=== PATIENT | female | born 1960 | race Caucasian/White ===

== ENCOUNTER → 2016-10-10 | Outpatient (CLI) | payer OTHER | LOC: LAB.O 14:36 | PROVIDERS: ATTEND Nurse Practitioner Family | DX: L40.50 Arthropathic psoriasis, unspecified (principal); Z79.899 Other long term (current) drug therapy ==

== ENCOUNTER → 2017-03-05 | Outpatient (CLI) | payer OTHER | LOC: LAB.O 12:28 | PROVIDERS: ATTEND Nurse Practitioner Family | DX: L40.50 Arthropathic psoriasis, unspecified (principal); Z79.899 Other long term (current) drug therapy ==

== ENCOUNTER → 2018-01-08 | Outpatient (CLI) | payer OTHER | LOC: YCFC.O 07:56 | PROVIDERS: ATTEND Nurse Practitioner Family | DX: L40.50 Arthropathic psoriasis, unspecified (principal); Z79.899 Other long term (current) drug therapy; Z13.220 Encounter for screening for lipoid disorders ==

== ENCOUNTER → 2020-06-26 | Outpatient (CLI) | payer BC ==
--- NOTE | 2020-06-26 17:02 | RAD ---
EXAM DESCRIPTION: Chest,2 Views CLINICAL HISTORY: 59 years Female, COUGH COMPARISON: None Available TECHNIQUE: PA/lateral FINDINGS: Focal infiltrate is observed in the right lower lobe consistent with pneumonia. The left chest clear. The heart is within range of normal. IMPRESSION: Right lower lobe pneumonia. Electronically signed by: Michael Mendoza MD 06/26/2020 5:00 PM CDT
== END ==
LOC: YCFC.O 16:26
PROVIDERS: ATTEND Nurse Practitioner Family
DX: J18.1 Lobar pneumonia, unspecified organism (principal)

== ENCOUNTER → 2020-07-31 | Outpatient (CLI) | payer BC ==
--- NOTE | 2020-08-02 15:49 | MAM ---
EXAM DESCRIPTION: 3D Screening BILATERAL : Digital Mammography. CLINICAL HISTORY: 59 years Female screening . No complaints. No family history breast cancer. Menarche age 11. Childbirth age 14. Menopause age 25. No HRT. Benign left breast biopsy. Lifetime risk of developing breast cancer (Tyrer-Cuzick model)(%): 6.7. COMPARISON: Bilateral screening digital breast 2-D imaging October 2015. No prior reports available. TECHNIQUE: Bilateral CC and MLO projection full-field images, digital tomosynthesis mammographic technique. Bilateral digital 2-D full-field MLO images. CAD available for 2-D images. FINDINGS: The breast parenchymal density pattern is: Scattered areas of fibroglandular density. No skin thickening or nipple retraction. Axillary nodes intramammary nodes stable. Solitary microcalcifications. No new focal, stellate mass or density, focal asymmetry , and no suspicious microcalcifications bilaterally. Stable mammograms compared to prior study. Taking into account, differences in mammographic technique. IMPRESSION: Benign exam. BIRAD CATEGORY: 2 BENIGN FINDINGS. RECOMMENDATIONS: FOLLOW UP: Routine digital bilateral mammographic screening, one year interval from July 2020. Written communication explaining the IMPRESSION and follow-up, will be mailed to the patient and referring health care provider. According to the [employer], yearly mammograms are recommended starting at age 40 and continuing as long as a woman is in good health. Any breast change noted on a breast self-exam should be reported promptly to the patient's healthcare provider. Breast MRI is recommended for women with an approximately 20-25% or greater lifetime risk of breast cancer, including women with a strong family history of breast or ovarian cancer and women who have been treated for Hodgkin's disease. A negative mammographic report should not delay tissue diagnosis in patients with significant clinical history or physical findings. Extremely dense breast tissue limits the sensitivity of digital mammography. Electronically signed by: Alek Neumann MD 08/02/2020 3:48 PM [facility]
== END ==
LOC: MAMMO 15:00
PROVIDERS: ATTEND Family Medicine
DX: Z12.31 Encounter for screening mammogram for malignant neoplasm of breast (principal)

== ENCOUNTER → 2020-11-08 | Outpatient (CLI) | payer BC | LOC: YCFC.O 09:04 | PROVIDERS: ATTEND Family Medicine | DX: M54.5 Low back pain (principal) ==

== ENCOUNTER 2020-11-10 14:31 | Emergency (ER) | payer BC ==
[2020-11-10] MEDS ORDERED: BUPIVACAINE 0.5% 30 ML VIAL INJ ONE (14:56)
[2020-11-10] MEDS ORDERED: TRIAMCINOLONE ACETONIDE INJ 40 MG/ML VIAL ONE (14:56)
--- NOTE | 2020-11-10 15:42 | RAD ---
EXAM DESCRIPTION: Lumbar Spine 3 Views CLINICAL HISTORY: pain to left of l5 COMPARISON: None. TECHNIQUE: AP and lateral FINDINGS: Mild convexity of the thoracolumbar spine to the right is observed. Surgical clips are seen in the right upper quadrant. The vertebral bodies are in good AP alignment. Marked loss of disc height is observed at the L3-4 level. Mild loss of disc height is also observed at the L2-3 and L1-2 levels. No spondylolysis or spondylolisthesis is seen. Degenerative changes are observed at the L5-S1 level as well with loss of disc height. IMPRESSION: Diffuse degenerative changes are observed. There is a right thoracolumbar scoliosis. Electronically signed by: Michael Mendoza MD 11/10/2020 3:40 PM [facility]
--- NOTE | 2020-11-10 16:38 | ED.PDOC ---
History of Present Illness - General Chief Complaint: General Stated Complaint: L hip, low back pain (non trauma) Time Seen by Provider: 11/10/20 14:46 Source: patient Exam Limitations: no limitations - History of Present Illness Initial Comments: The patient is a 60-year-old female presented emergency room secondary to pain in her left low back and buttock area. She pinpoints the area just to the left of the spine at approximately L5-S1 that is a trigger point for her pain. 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 She had a CT scan of the abdomen pelvis yesterday which was reassuring but no blood work. She denies fevers. Patient was started about 4 or 5 days ago. No inciting injury. No trauma. Timing/Duration: other - 4 days Severity: moderate Improving Factors: nothing Worsening Factors: nothing Associated Symptoms: denies symptoms Allergies/Adverse Reactions: Allergies Doxycycline Allergy (Verified 11/10/20 15:14) vycril sutures Allergy (Uncoded 11/10/20 15:14) Home Medications: Ambulatory Orders Adalimumab [Humira Pen] 40 mg SC 01/08/15 Lisinopril 20 mg PO DAILY 01/08/15 Ondansetron Odt [Zofran ODT] 8 mg PO Q6HR PRN #20 tab 01/08/15 predniSONE 40 mg PO DAILY #4 tab 01/08/15 Review of Systems - Review of Systems Constitutional: States: no symptoms reported EENTM: States: no symptoms reported Respiratory: States: no symptoms reported Cardiology: States: no symptoms reported Gastrointestinal/Abdominal: States: no symptoms reported Genitourinary: States: no symptoms reported Musculoskeletal: States: back pain Skin: States: no symptoms reported Neurological: States: no symptoms reported Endocrine: States: no symptoms reported All other Systems: No Change from Baseline Past Medical History (General) - Patient Medical History Hx Seizures: No Hx Stroke: No Hx Asthma: No Hx of COPD: No Hx Cardiac Disorders: No Hx Congestive Heart Failure: No Hx Pacemaker: No Hx Hypertension: Yes Hx Thyroid Disease: No Hx Diabetes: No Hx Cancer: No Surgical History: cholecystectomy, Hysterectomy - Vaccination History Hx Tetanus, Diphtheria Vaccination: Yes Hx Influenza Vaccination: Yes Hx Pneumococcal Vaccination: No - Social History Hx Tobacco Use: Yes Hx Alcohol Use: Yes Hx Substance Use: No Hx Substance Use Treatment: No Hx Depression: No - Female History Patient is a Female of Child Bearing Age (10 -59 yrs old): No Patient : No Family Medical History - Family History Mother Family History: Unknown Living Status: Physical Exam - Physical Exam General Appearance: Alert, Comfortable, No apparent distress Eye Exam: bilateral normal Ears, Nose, Throat: hearing grossly normal Respiratory: no respiratory distress, no accessory muscle use Cardiovascular/Chest: normal peripheral pulses, no edema Peripheral Pulses: radial,right: 2+, radial,left: 2+ Gastrointestinal/Abdominal: other - Obese Rectal Exam: deferred Back Exam: no vertebral tenderness, other - Point tenderness at L5-S1 on the left Extremity: normal range of motion, non-tender, no pedal edema, normal capillary refill Neurologic: reservations agent II-XII nml as tested, alert, normal mood/affect, oriented x 3 Skin Exam: normal color Comments: Vital Signs - 24 hr 11/10/20 11/10/20 14:32 14:51 Temperature 98.3 F Pulse Rate [ 84 84 Pulse ox] Respiratory 16 16 Rate Blood Pressure 156/91 [L arm] O2 Sat by Pulse 96 Oximetry Laboratory Results - last 24 hr 11/10/20 11/10/20 11/10/20 15:18 15:18 15:18 WBC 4.9 RBC 4.07 L Hgb 12.7 Hct 37.7 MCV 92.5 MCH 31.3 H MCHC 33.8 RDW 12.9 Plt Count 262 MPV 6.5 L Absolute Neuts (auto) 2.00 Absolute Lymphs (auto) 2.00 Absolute Monos (auto) 0.60 Absolute Eos (auto) 0.30 Absolute Basos (auto) 0.10 Neutrophils % 40.4 L Lymphocytes % 40.9 Monocytes % 12.0 H Eosinophils % 5.2 H Basophils % 1.5 ESR 20 Sodium 140 Potassium 3.8 Chloride 107 Carbon Dioxide 25 Anion Gap 11.8 L BUN 22 H Creatinine 0.71 BUN/Creatinine Ratio 31.0 H Random Glucose 96 Serum Osmolality 282.6 Calcium 9.0 Magnesium 2.3 Total Bilirubin 0.9 AST 19 ALT 20 Alkaline Phosphatase 44 Creatine Kinase 148 H CK-MB (CK-2) 2.7 CK-MB (CK-2) % Not Reportable Troponin I < 0.02 C-Reactive Protein < 0.8 Serum Total Protein 8.1 Albumin 4.4 Globulin 3.7 H Albumin/Globulin Ratio 1.2 X-ray of the lumbar spine shows degenerative changes but no obvious acute pathology. Progress - Progress Progress: 11/10/20 16:38 The patient is a 60-year-old female presented emergency room secondary to pain that is apparently acute on chronic. Pain localizes to the L5-S1 area on the left. X-ray shows no obvious acute pathology. She had a CT scan of the abdomen pelvis yesterday that did not show any obvious acute pathology given the pain at that site. White blood cell count was around 5000 and CRP and ESR are within normal limits. The patient received 40 mg of Kenalog and 5 cc of Marcaine without epinephrine as a trigger point injection at that site. Patient tolerated the procedure well. She is to continue the prescription started by her primary care doctor otherwise. Also to use topical heat in the form of a heat pad or icy hot or Biofreeze. I do recommend stretching exercises. Keep follow-up with primary care doctor. Risk benefits of injection explained and patient agrees to proceed. Area cleaned with alcohol prep. Point of maximal tenderness localized. 40 mg of Kenalog and 5 cc of Marcaine without epinephrine were fanned out over the area. Pressure was held and the medication was rubbed in. Patient tolerated procedure well. gill lopes [id number] Departure - Departure Clinical Impression: Low back pain Qualifiers: Chronicity: acute Back pain laterality: left Sciatica presence: without sciatica Qualified Code(s): M54.5 - Low back pain Disposition: Discharge to Home or Self Care Condition: Fair Departure Forms: ED Discharge - Pt. Copy, Patient Portal Self Enrollment Diet: regular diet Activity: increase activity as tolerated Referrals: Shailesh Gutierrez MD [Primary Care Provider] - 1-2 Weeks Home Medications: Ambulatory Orders Adalimumab [Humira Pen] 40 mg SC 01/08/15 Lisinopril 20 mg PO DAILY 01/08/15 Ondansetron Odt [Zofran ODT] 8 mg PO Q6HR PRN #20 tab 01/08/15 predniSONE 40 mg PO DAILY #4 tab 01/08/15 Additional Instructions: The patient is a 59-year-old female presented emergency room after having gotten a food bolus temporarily stuck in the esophagus. After a GI cocktail, the bolus seems to have passed. She has tolerated water and yogurt at this point. The patient should expect some irritation of the esophagus over the next week as there will likely be some mild swelling. She is to maintain a soft diet and keep her self well-hydrated. Additionally she needs to take some [id number] Pepcid twice daily for the next week to reduce the acid wash back into the esophagus. The patient has had a history of esophageal stricture in the past and should go ahead and make an appointment with the internal revenue service agent for a repeat evaluation in the near future. ER warnings are given. Keep routine follow-up with primary care doctor.
[2020-11-10 17:16] VITALS: BP 132/88; TEMP 97.6; O2SAT 95
== END 2020-11-10 17:12 | disposition home or self-care (01) ==
LOC: ER 14:31
DX: M54.5 Low back pain (principal); M47.816 Spondylosis without myelopathy or radiculopathy, lumbar region; D89.89 Other specified disorders involving the immune mechanism, not elsewhere classified; I10 Essential (primary) hypertension; Z87.891 Personal history of nicotine dependence; Z79.899 Other long term (current) drug therapy; Z88.1 Allergy status to other antibiotic agents
CPT/HCPCS: 36415; 72100; 80053; 82550; 82553; 83735; 84484; 85025; 85651; 86140; J3301